=== PATIENT | female | born 1945 | race Caucasian/White ===

== ENCOUNTER 2020-09-08 04:41 | Emergency (ER) | payer MEDICARE ==
[2020-09-08 04:51] VITALS: BMI 21.9
[2020-09-08] MEDS ORDERED: ONDANSETRON *ODT* 4 MG TABLET SL ONE (05:09)
[2020-09-08 06:51] LABS: BASO % 0.7 % (0-2.0); EOS % 4.4 % (0-4.5); HEMATOCRIT 45.4 % (32.4-45.2); HEMOGLOBIN 14.7 GM/dL (10.7-15.3); LYMPH % 37.8 % (8-40); MCH 28.7 pg (25.7-33.7); MCHC 32.3 g/dl (32.0-36.0); MEAN CELL VOLUME 88.8 fl (80-96); MEAN PLT VOLUME 7.9 fl (7.5-11.1); MONO % 6.9 % (3.8-10.2); NEUT % 50.2 % (42.8-82.8); PLATELET COUNT 328 10^3/uL (134-434); RBC 5.12 M/mm3 (3.60-5.2); RDW 17.2 % (11.6-15.6); WHITE BLOOD COUNT 8.9 K/mm3 (4.0-10.0)
[2020-09-08 08:10] LABS: URINE APPEARANCE CLEAR; URINE BILIRUBIN NEGATIVE (NEGATIVE); URINE COLOR YELLOW; URINE GLUCOSE (UA) NEGATIVE (NEGATIVE); URINE KETONE NEGATIVE (NEGATIVE); URINE LEUK ESTERASE NEGATIVE (NEGATIVE); URINE NITRITE NEGATIVE (NEGATIVE); URINE PROTEIN NEGATIVE (NEGATIVE); URINE UROBILINOGEN 0.2 mg/dL (0.2-1.0)
[2020-09-08 08:33] LABS: ALBUMIN 3.9 g/dl (3.4-5.0); BLOOD UREA NITROGEN 11.7 mg/dL (7-18)
[2020-09-08 08:36] LABS: CREATININE 0.6 mg/dL (0.55-1.3)
[2020-09-08 08:37] LABS: BILIRUBIN,TOTAL 0.4 mg/dL (0.2-1); TOT PROT 7.2 g/dl (6.4-8.2)
[2020-09-08 09:18] VITALS: BP 146/77; PULSE 99
== END 2020-09-08 09:25 | disposition home or self-care (01) ==
LOC: EDBD 04:41 → JER 04:41
DX: R11.0 Nausea (principal)
CPT/HCPCS: 36415; 71045-TC-FY; 80053; 81003; 82436; 83930; 83935; 84300; 85025; 87086; 93005; 93010; 99284-25; C9803; Q0162; U0003; U0005

== ENCOUNTER 2021-02-15 16:44 | Inpatient (IN) | payer MEDICARE, OTHER ==
[2021-02-15] MEDS ORDERED: ONDANSETRON 4 MG/2 ML VIAL IVPUSH ONE (18:13)
[2021-02-15] MEDS ORDERED: SODIUM CHLORIDE 0.9% 500 ML INFUS.BAG IV ONE (18:13)
[2021-02-15] MEDS ORDERED: ONDANSETRON 4 MG/2 ML VIAL ONE (18:46)
[2021-02-15 19:06] LABS: BASO % 0.5 % (0-2.0); HEMATOCRIT 38.1 % (32.4-45.2); HEMOGLOBIN 12.8 GM/dL (10.7-15.3); LYMPH % 16.4 % (8-40); MCH 28.8 pg (25.7-33.7); MCHC 33.8 g/dl (32.0-36.0); MEAN CELL VOLUME 85.3 fl (80-96); MEAN PLT VOLUME 7.4 fl (7.5-11.1); MONO % 3.5 % (3.8-10.2); NEUT % 79.6 % (42.8-82.8); PLATELET COUNT 308 10^3/uL (134-434); RBC 4.46 M/mm3 (3.60-5.2); RDW 14.9 % (11.6-15.6); WHITE BLOOD COUNT 11.5 K/mm3 (4.0-10.0)
[2021-02-15 19:13] LABS: INR 1.11 (0.83-1.09); PROTHROMBIN TIME (PATIENT) 12.5 SEC (9.7-13.0)
[2021-02-15 19:16] LABS: ACTIVATED PTT 25.4 SECONDS (25.2-36.5)
[2021-02-15 19:27] LABS: CHLORIDE 98 mmol/L (98-107); SODIUM 132 mmol/L (136-145)
[2021-02-15 19:29] LABS: ALBUMIN 3.5 g/dl (3.4-5.0); ANION GAP 8 MMOL/L (8-16); BLOOD UREA NITROGEN 12.8 mg/dL (7-18); CO2 25 mmol/L (21-32); GLUCOSE,RANDOM 103 mg/dL (74-106); LIPASE 114 U/L (73-393); MAGNESIUM 2.3 mg/dL (1.8-2.4)
[2021-02-15 19:32] LABS: CREATININE 0.6 mg/dL (0.55-1.3); SGOT/AST < 3 U/L (15-37); SGPT/ALT 10 U/L (13-61)
[2021-02-15 19:34] LABS: BILIRUBIN,TOTAL 0.3 mg/dL (0.2-1); LACTIC ACID 2.2 mmol/L (0.4-2.0); TOT PROT 6.7 g/dl (6.4-8.2)
[2021-02-15 19:35] LABS: ALK PHOS 99 U/L (45-117)
[2021-02-15 19:53] LABS: LDH 176 U/L (84-246)
[2021-02-15 21:16] LABS: URINE APPEARANCE CLEAR; URINE BILIRUBIN NEGATIVE (NEGATIVE); URINE COLOR YELLOW; URINE GLUCOSE (UA) NEGATIVE (NEGATIVE); URINE KETONE NEGATIVE (NEGATIVE); URINE LEUK ESTERASE NEGATIVE (NEGATIVE); URINE NITRITE NEGATIVE (NEGATIVE); URINE PROTEIN NEGATIVE (NEGATIVE); URINE UROBILINOGEN 0.2 mg/dL (0.2-1.0)
[2021-02-15 21:24] LABS: METHADONE, UR NEGATIVE (NEGATIVE); PHENCYCLIDINE,URINE NEGATIVE (NEGATIVE); URINE BENZODIAZEPINES NEGATIVE (NEGATIVE)
[2021-02-15 21:25] LABS: COCAINE, UR NEGATIVE (NEGATIVE); OPIATES, URI NEGATIVE (NEGATIVE); URINE BARBITURATES NEGATIVE (NEGATIVE)
[2021-02-15 21:32] LABS: ARTERIAL BLD GAS O2 SATURATION 99.2 % (95-98); ARTERIAL BLOOD GAS BASE EXCESS -2.6 mmol/L (-2-2); ARTERIAL BLOOD GAS PO2 175.7 mmHg (80-100); ARTERIAL BLOOD GAS pH 7.424 (7.350-7.450)
[2021-02-15 21:34] LABS: URINE AMPHETAMINES NEGATIVE (NEGATIVE)
[2021-02-15] MEDS ORDERED: PATIENT'S OWN MEDICATION (NON-FORMULARY) (Olanzapine [Olanzapine] 10 MG Tablet) PO SCH (23:45)
[2021-02-16 08:31] LABS: BASO % 0.4 % (0-2.0); EOS % 1.2 % (0-4.5); HEMATOCRIT 41.7 % (32.4-45.2); HEMOGLOBIN 13.7 GM/dL (10.7-15.3); LYMPH % 24.4 % (8-40); MCH 28.8 pg (25.7-33.7); MCHC 32.9 g/dl (32.0-36.0); MEAN CELL VOLUME 87.5 fl (80-96); MEAN PLT VOLUME 7.6 fl (7.5-11.1); MONO % 6.5 % (3.8-10.2); NEUT % 67.5 % (42.8-82.8); PLATELET COUNT 326 10^3/uL (134-434); RBC 4.77 M/mm3 (3.60-5.2); RDW 15.6 % (11.6-15.6); WHITE BLOOD COUNT 11.1 K/mm3 (4.0-10.0)
[2021-02-16 08:37] LABS: INR 1.19 (0.83-1.09); PROTHROMBIN TIME (PATIENT) 13.9 SEC (9.7-13.0)
[2021-02-16 08:39] LABS: ACTIVATED PTT 29.9 SECONDS (25.2-36.5)
[2021-02-16 08:58] LABS: MAGNESIUM 2.5 mg/dL (1.8-2.4)
[2021-02-16 09:01] LABS: PHOSPHOROUS 4.3 mg/dL (2.5-4.9)
[2021-02-16 09:08] LABS: LDH 167 U/L (84-246)
[2021-02-16] MEDS ORDERED: PT OWN MED DRAWER 7, Y5N ONE ×2 (09:25→21:11)
[2021-02-16] MEDS: ENOXAPARIN NA (PORCINE) 40 MG/0.4 ML DISP.SYRIN SQ SCH (09:38)
[2021-02-16] MEDS ORDERED: FLU VACC QS2021-22(6MOS UP)/PF 60 MCG/0.5 ML SYRINGE IM ONE (10:00)
[2021-02-16] MEDS: QUEtiapine FUMARATE 100 MG TABLET (FP) PO SCH ×2 (21:47→23:45)
[2021-02-16] MEDS: OLANZapine 10 MG TABLET PO SCH ×2 (21:47→23:45)
[2021-02-16] MEDS ORDERED: QUEtiapine FUMARATE 200 MG TABLET PO SCH (22:00)
[2021-02-16 22:51] LABS: BASO % 0.6 % (0-2.0); EOS % 1.8 % (0-4.5); HEMATOCRIT 40.6 % (32.4-45.2); HEMOGLOBIN 13.7 GM/dL (10.7-15.3); LYMPH % 34.3 % (8-40); MCH 29.3 pg (25.7-33.7); MCHC 33.9 g/dl (32.0-36.0); MEAN CELL VOLUME 86.5 fl (80-96); MEAN PLT VOLUME 7.4 fl (7.5-11.1); MONO % 7.7 % (3.8-10.2); NEUT % 55.6 % (42.8-82.8); PLATELET COUNT 302 10^3/uL (134-434); RBC 4.69 M/mm3 (3.60-5.2); RDW 15.4 % (11.6-15.6); WHITE BLOOD COUNT 9.9 K/mm3 (4.0-10.0)
[2021-02-16 23:14] LABS: CALCIUM 8.6 mg/dL (8.5-10.1)
[2021-02-16 23:15] LABS: ALBUMIN 3.2 g/dl (3.4-5.0); BLOOD UREA NITROGEN 18.1 mg/dL (7-18)
[2021-02-16 23:18] LABS: CREATININE 0.7 mg/dL (0.55-1.3)
[2021-02-16 23:20] LABS: BILIRUBIN,TOTAL 0.6 mg/dL (0.2-1); TOT PROT 6.3 g/dl (6.4-8.2)
[2021-02-16] MEDS ORDERED: ASPIRIN 300 MG SUPP.RECT RC ONE (23:33)
[2021-02-17] MEDS ORDERED: PYRIDOXINE HCL 100 MG/1 ML VIAL IVPB ONE (00:02)
[2021-02-17] MEDS: ENOXAPARIN NA (PORCINE) 40 MG/0.4 ML DISP.SYRIN SQ SCH (09:16)
[2021-02-17] MEDS ORDERED: PT OWN MED DRAWER 7, Y5N ONE (09:17)
[2021-02-17] MEDS: OLANZapine 10 MG TABLET PO SCH ×2 (09:18→22:52)
[2021-02-18] MEDS ORDERED: PT OWN MED DRAWER 7, Y5N ONE (09:13)
[2021-02-18] MEDS: ENOXAPARIN NA (PORCINE) 40 MG/0.4 ML DISP.SYRIN SQ SCH (09:32)
[2021-02-18] MEDS ORDERED: PYRIDOXINE HCL (B-6) 100 MG TABLET PO ONE (11:46)
[2021-02-18] MEDS: SODIUM CHLORIDE 1,000 ML IV SCH (12:33)
[2021-02-18 13:32] LABS: BASO % 0.7 % (0-2.0); EOS % 0.4 % (0-4.5); HEMATOCRIT 39.1 % (32.4-45.2); HEMOGLOBIN 13.2 GM/dL (10.7-15.3); LYMPH % 27.9 % (8-40); MCH 29.4 pg (25.7-33.7); MCHC 33.8 g/dl (32.0-36.0); MEAN PLT VOLUME 7.8 fl (7.5-11.1); MONO % 7.6 % (3.8-10.2); NEUT % 63.4 % (42.8-82.8); PLATELET COUNT 314 10^3/uL (134-434); RDW 15.4 % (11.6-15.6); WHITE BLOOD COUNT 13.1 K/mm3 (4.0-10.0)
[2021-02-18 13:58] LABS: CALCIUM 8.9 mg/dL (8.5-10.1)
[2021-02-18 13:59] LABS: ALBUMIN 3.3 g/dl (3.4-5.0); BLOOD UREA NITROGEN 27.4 mg/dL (7-18); MAGNESIUM 2.3 mg/dL (1.8-2.4)
[2021-02-18 14:02] LABS: CREATININE 0.6 mg/dL (0.55-1.3)
[2021-02-18 14:03] LABS: BILIRUBIN,TOTAL 0.6 mg/dL (0.2-1); TOT PROT 6.7 g/dl (6.4-8.2)
[2021-02-18] MEDS: OLANZapine 10 MG TABLET PO SCH (21:11)
[2021-02-19] MEDS: ENOXAPARIN NA (PORCINE) 40 MG/0.4 ML DISP.SYRIN SQ SCH (09:55)
[2021-02-19] MEDS: SODIUM CHLORIDE 1,000 ML IV SCH (21:23)
[2021-02-19] MEDS: OLANZapine 10 MG TABLET PO SCH (21:23)
[2021-02-20] MEDS: SODIUM CHLORIDE 1,000 ML IV SCH ×2 (09:03→12:04)
[2021-02-20] MEDS ORDERED: ENOXAPARIN NA (PORCINE) 40 MG/0.4 ML DISP.SYRIN SQ SCH (10:00)
[2021-02-20 12:37] LABS: BASO % 0.4 % (0-2.0); EOS % 2.4 % (0-4.5); HEMOGLOBIN 13.3 GM/dL (10.7-15.3); LYMPH % 25.6 % (8-40); MCH 29.1 pg (25.7-33.7); MCHC 33.4 g/dl (32.0-36.0); MEAN CELL VOLUME 87.3 fl (80-96); MEAN PLT VOLUME 7.6 fl (7.5-11.1); MONO % 5.5 % (3.8-10.2); NEUT % 66.1 % (42.8-82.8); PLATELET COUNT 323 10^3/uL (134-434); RBC 4.58 M/mm3 (3.60-5.2); WHITE BLOOD COUNT 12.2 K/mm3 (4.0-10.0)
[2021-02-20 12:56] LABS: CALCIUM 8.6 mg/dL (8.5-10.1)
[2021-02-20 12:57] LABS: ALBUMIN 3.4 g/dl (3.4-5.0); BLOOD UREA NITROGEN 7.6 mg/dL (7-18)
[2021-02-20 13:00] LABS: CREATININE 0.5 mg/dL (0.55-1.3)
[2021-02-20 13:01] LABS: TOT PROT 6.6 g/dl (6.4-8.2)
[2021-02-20 13:02] LABS: BILIRUBIN,TOTAL 0.5 mg/dL (0.2-1)
[2021-02-20 15:09] VITALS: BP 143/77; PULSE 104; TEMP 98.3
[2021-02-20 15:46] LABS: EPI CELLS 4 /uL (0-25.1); HYALINE CASTS 18 /uL (0-3.1); URINE APPEARANCE CLEAR; URINE BACTERIA >9,000 /uL (0-1359); URINE BILIRUBIN NEGATIVE (NEGATIVE); URINE COLOR DK YELLOW; URINE GLUCOSE (UA) NEGATIVE (NEGATIVE); URINE KETONE 1+ (NEGATIVE); URINE LEUK ESTERASE 2+ (NEGATIVE); URINE NITRITE NEGATIVE (NEGATIVE); URINE PROTEIN TRACE (NEGATIVE); URINE RBC 42 /uL (0-23.9); URINE WBC 605 /uL (0-25.8)
== END 2021-02-20 16:08 | disposition home or self-care (01) | DRG 917 ==
LOC: JER 16:44 → JERBED 21:50 → J4W 02-16 04:10 → J7W 02-19 13:18
PROVIDERS: ADMIT Hospitalist; ATTEND Nurse Practitioner Family
DX: T65.891A Toxic effect of other specified substances, accidental (unintentional), initial encounter (principal); G92.9 Unspecified toxic encephalopathy; F32.9 Major depressive disorder, single episode, unspecified; R11.2 Nausea with vomiting, unspecified; F31.9 Bipolar disorder, unspecified; Y92.89 Other specified places as the place of occurrence of the external cause; D72.829 Elevated white blood cell count, unspecified; E78.5 Hyperlipidemia, unspecified; R00.0 Tachycardia, unspecified
CPT/HCPCS: 36415; 36600; 70450-TC; 71045-TC-FY; 80053; 80307; 81003; 82140; 82550; 82553; 82803; 82962; 83050; 83605; 83615; 83690; 83735; 84100; 84443; 84484; 85025; 85027; 85610; 85730; 87040; 87086; 93005; 93010; 94010; 97116-GP; 97161-GP; 99285-25; C9803-CS; U0003; U0005

== ENCOUNTER 2022-01-24 09:47 | Emergency (ER) | payer OTHER ==
[2022-01-24 10:35] VITALS: RESP 18; TEMP 98.4; BMI 25.2
[2022-01-24] MEDS ORDERED: LACTATED RINGERS SOLUTION 1000 ML INFUS.BAG IV ONE (11:54)
[2022-01-24] MEDS ORDERED: TRIMETHOBENZAMIDE HCL 200MG/2ML INJ IM ONE ×2 (11:54→12:09)
[2022-01-24 12:21] LABS: BASO % 0.5 % (0-2.0); EOS % 0.3 % (0-4.5); HEMATOCRIT 44.5 % (32.4-45.2); HEMOGLOBIN 14.8 GM/dL (10.7-15.3); MCH 28.8 pg (25.7-33.7); MCHC 33.3 g/dl (32.0-36.0); MEAN CELL VOLUME 86.4 fl (80-96); MONO % 4.7 % (3.8-10.2); NEUT % 78.5 % (42.8-82.8); PLATELET COUNT 379 10^3/uL (134-434); RBC 5.15 M/mm3 (3.60-5.2); RDW 15.9 % (11.6-15.6); WHITE BLOOD COUNT 12.7 K/mm3 (4.0-10.0)
[2022-01-24 12:37] LABS: INR 0.91 (0.83-1.09); PROTHROMBIN TIME (PATIENT) 10.5 SEC (9.7-13.0)
[2022-01-24 12:39] LABS: PH,URINE 6.5 (5.0-8.0); URINE APPEARANCE CLEAR; URINE BILIRUBIN NEGATIVE (NEGATIVE); URINE COLOR YELLOW; URINE GLUCOSE (UA) NEGATIVE (NEGATIVE); URINE KETONE NEGATIVE (NEGATIVE); URINE LEUK ESTERASE NEGATIVE (NEGATIVE); URINE NITRITE NEGATIVE (NEGATIVE); URINE PROTEIN NEGATIVE (NEGATIVE); URINE UROBILINOGEN 0.2 mg/dL (0.2-1.0)
[2022-01-24 12:40] LABS: ACTIVATED PTT 29.9 SECONDS (25.2-36.5)
[2022-01-24 12:55] LABS: CALCIUM 9.5 mg/dL (8.5-10.1)
[2022-01-24 12:56] LABS: ALBUMIN 3.9 g/dl (3.4-5.0); BLOOD UREA NITROGEN 10.9 mg/dL (7-18); MAGNESIUM 2.2 mg/dL (1.8-2.4)
[2022-01-24 12:59] LABS: CREATININE 0.7 mg/dL (0.55-1.3); PHOSPHOROUS 3.8 mg/dL (2.5-4.9)
[2022-01-24 13:00] LABS: BILIRUBIN,TOTAL 0.4 mg/dL (0.2-1); TOT PROT 7.5 g/dl (6.4-8.2)
[2022-01-24 15:12] VITALS: BP 173/108; PULSE 118
== END 2022-01-24 18:22 | disposition home or self-care (01) ==
LOC: JER 09:47
PROC: 3E023GC Introduction of Other Therapeutic Substance into Muscle, Percutaneous Approach (ICD-10-PCS; principal; 2022-01-24)
DX: R11.2 Nausea with vomiting, unspecified (principal)
CPT/HCPCS: 0241U-QW; 36415; 74177-TC; 80053; 81003; 83690; 83735; 84100; 84484; 85025; 85610; 85730; 87086; 93005; 93010; 99285-25